=== PATIENT | female | born 1995 | race Caucasian/White ===

== ENCOUNTER 2017-10-14 21:44 | Emergency (ER) | payer OTHER, BC ==
[~2017-10-14] VITALS: Ht 170.2 cm; Wt 54.9 kg
== END 2017-10-14 22:14 | disposition home or self-care (01) ==
LOC: ED 21:44
DX: T23.211A Burn of second degree of right thumb (nail), initial encounter (principal); T28.1XXA Burn of esophagus, initial encounter; Z88.4 Allergy status to anesthetic agent
CPT/HCPCS: 16020; 99282

== ENCOUNTER 2019-03-13 17:20 | Observation (INO) | payer OTHER ==
[~2019-03-13 17:20] MED LIST: MACROBID 100 M100 MG PO; ZOFRAN4 MG PO
--- NOTE | 2019-03-13 19:20 | PR ---
[facility] [address] [facility] [place], [place] [address] Signed AP Progress Notes Datetime Report Generated by CPN: 03/13/2019 19:20 Chief Complaint: CTXs PHYSICAL EXAM: [id number] General: Normal HEENT: Normal Respiratory: Normal Back: Normal Abdomen: Normal Geniturinry Exam: Not Done VITAL SIGNS: [id number] Vital Signs: Reviewed; Within Normal Limits EXAM: [id number] Dilatation: 0.0 Effacement: 0 Station: -4 Contraction Comments: q 6 minutes MEMBRANES: [id number] Pooling: Negative Nitrazine: Equiv Membranes: Intact Fetus A: [id number] FHR Baseline: 135 Variability: Moderate 6-25bpm Accelerations: 15X15 Deceleration: None FHR Category: Category I Fetus A Comments: No evidence of metabolic acidosis Presentation: Vertex Fetus B: [id number] PROGRESS NOTES: [id number] Impression: 1. IUP @ 30w2d 2. Threatened labor 3. Shortened cervix on US; unchanged from 01/22/19 4. NST reactive Plan: Per report, CL unchanged since 01/22/19 @ 1.46cm, however US on 01/23 w/ MFM shows CL 3.0mm w/out funneling. Awaiting official report. Will admit patient for observation. Will give dose of terb. Will monitor contractions w/ continuous tocometer and for cervical change, and if cervical change noted will then initiate betamethasone, *Electronically Signed* 03/13/191919 CHAUNCEY FARRAR DO PATIENT NAME: FLY BRIDGES PROGRESS NOTE DATE OF : [birth year] PHYSICIAN: CHAUNCEY FARRAR DO RPT #: [id number] REPORT IS CONFIDENTIAL AND NOT TO BE RELEASED WITHOUT AUTHORIZATION [facility] [address] [facility] [place], [place] [address] Signed magnesium sulfate, and consider transfer to higher level of care. Reviewed w/ pt who understands and agrees. Signing Physician: Chauncey Farrar DO Copies: ~ *Electronically Signed* 03/13/191919 CHAUNCEY FARRAR DO PATIENT NAME: FLY BRIDGES PROGRESS NOTE DATE OF : 97 PHYSICIAN: CHAUNCEY FARRAR DO RPT #: [id number] REPORT IS CONFIDENTIAL AND NOT TO BE RELEASED WITHOUT AUTHORIZATION
--- NOTE | 2019-03-14 09:48 | PR ---
[facility] [address] [facility] [place], [place] [address] Signed AP Progress Notes Datetime Report Generated by CPN: 03/14/2019 09:48 Chief Complaint: Only rare, mild contractions, feels fine PHYSICAL EXAM: [id number] General: Normal HEENT: Normal Respiratory: Normal Back: Normal Abdomen: Normal Geniturinry Exam: Not Done VITAL SIGNS: [id number] Vital Signs: Reviewed; Within Normal Limits EXAM: [id number] Dilatation: 0.0 Effacement: 0 Station: -4 Contraction Comments: rare MEMBRANES: [id number] Pooling: Negative Nitrazine: Equiv Membranes: Intact Fetus A: [id number] FHR Baseline: 135 Variability: Moderate 6-25bpm Accelerations: 15X15 Deceleration: None FHR Category: Category I Fetus A Comments: No evidence of metabolic acidosis Presentation: Vertex Fetus B: [id number] PROGRESS NOTES: [id number] Impression: No Labor Plan: Home Light Duty (patient would like to continue working) - note written Signing Physician: Angelica Newberry MD Copies: *Electronically Signed* 03/14/19 0948 ANGELICA NEWBERRY MD PATIENT NAME: FLY BRIDGES PROGRESS NOTE DATE OF : 97 PHYSICIAN: ANGELICA NEWBERRY MD RPT #: [id number] REPORT IS CONFIDENTIAL AND NOT TO BE RELEASED WITHOUT AUTHORIZATION [address] [address] Signed ~ *Electronically Signed* 03/14/19 0948 ANGELICA NEWBERRY MD PATIENT NAME: FLY BRIDGES PROGRESS NOTE DATE OF : [birth year] PHYSICIAN: ANGELICA NEWBERRY MD RPT #: [id number] REPORT IS CONFIDENTIAL AND NOT TO BE RELEASED WITHOUT AUTHORIZATION
== END 2019-03-14 10:15 | disposition home or self-care (01) ==
LOC: FBCO 17:20 → FBC 19:22
PROVIDERS: ADMIT Obstetrics & Gynecology
DX: O60.03 Preterm labor without delivery, third trimester (principal); O34.43 Maternal care for other abnormalities of cervix, third trimester; Z3A.30 30 weeks gestation of pregnancy
CPT/HCPCS: 76817; 82731; J3105

== ENCOUNTER 2019-05-13 06:17 | Inpatient (IN) | payer OTHER ==
--- NOTE | 2019-05-13 11:04 | PR ---
[facility] [address] [facility] [place], [place] [address] Signed Progress Notes IP Datetime Report Generated by CPN: 05/13/2019 11:04 PROGRESS NOTES: [id number] Impression: Normal progression of labor; Rupture of membranes Plan: Continue present management; Anticipate Vaginal Delivery VITAL SIGNS: [id number] Vital Signs: Reviewed; Within Normal Limits EXAM: [id number] Dilatation: 4.0 Effacement: 80 Station: -1 Uterine Contractions: every2-4 minutes MEMBRANES: [id number] Pooling: Negative Nitrazine: Equiv Membrane Status: Ruptured Amniotic Fluid Color: Clear ROM Note: SROM with moderate amount clear fluid Comments: Comfortable with Epidural Fetus A: [id number] FHR Baseline: 120 Variability: Moderate 6-25bpm Accelerations: 15X15 Decelerations: None FHR Category: Category I Presentation: Vertex Comments on Fetus A: No evidence of metabolic acidosis Fetus B: [id number] Signing Physician: Angelica Newberry MD Copies: ~ *Electronically Signed* 05/13/19 1104 ANGELICA NEWBERRY MD PATIENT NAME: FLY BRIDGES PROGRESS NOTE DATE OF : 97 PHYSICIAN: NAGELICA NEWBERRY MD RPT #: [id number] REPORT IS CONFIDENTIAL AND NOT TO BE RELEASED WITHOUT AUTHORIZATION
--- NOTE | 2019-05-13 12:43 | PR ---
[facility] [address] [facility] [place], [place] [address] Signed Progress Notes IP Datetime Report Generated by CPN: 05/13/2019 12:43 PROGRESS NOTES: [id number] Impression: Slow Progression of Labor Plan: Augmentation VITAL SIGNS: [id number] Vital Signs: Reviewed; Within Normal Limits EXAM: [id number] Dilatation: 5.0 Effacement: 80 Station: -1 Uterine Contractions: every 2-6 minutes MEMBRANES: [id number] Pooling: Negative Nitrazine: Equiv Membrane Status: Ruptured Amniotic Fluid Color: Clear ROM Note: SROM with moderate amount clear fluid Comments: Confirmtalbe with Epidural. Will start Pitocin augmentation Fetus A: [id number] FHR Baseline: 120 Variability: Moderate 6-25bpm Accelerations: 15X15 Decelerations: None FHR Category: Category I Presentation: Vertex Comments on Fetus A: No evidence of metabolic acidosis Fetus B: [id number] Signing Physician: Angelica Newberry MD Copies: ~ *Electronically Signed* 05/13/19 1243 ANGELICA NEWBERRY MD PATIENT NAME: FLY BRIDGES PROGRESS NOTE DATE OF : [birth year] PHYSICIAN: ANGELICA NEWBERRY MD RPT #: [id number] REPORT IS CONFIDENTIAL AND NOT TO BE RELEASED WITHOUT AUTHORIZATION
--- NOTE | 2019-05-13 15:44 | PR ---
[facility] [address] [place], [place] [address] Signed Progress Notes IP Datetime Report Generated by CPN: 05/13/2019 15:44 PROGRESS NOTES: [id number] Impression: Slow Progression of Labor Procedures: Artificial ROM; Intrauterine Pressure Catheter; Scalp Electrode Plan: Continue present management; Augmentation VITAL SIGNS: [id number] Vital Signs: Reviewed; Within Normal Limits EXAM: I3699856 Dilatation: 5.0 Effacement: 80 Station: -1 Uterine Contractions: every 2-3 minutes MEMBRANES: [id number] Pooling: Negative Nitrazine: Equiv Membrane Status: Ruptured Amniotic Fluid Color: Clear ROM Note: 2nd BOW palpable - AROM with another moderate amount clear fluid Comments: On Pitocin, but still no progress. Getting uncomfortable with contractions. Anesthesia called for possible redose. Internal monitors inserted to confirm adequate contractions. Hopefully will start cervical change Fetus A: [id number] FHR Baseline: 130 Variability: Moderate 6-25bpm Accelerations: 15X15 Decelerations: None FHR Category: Category I Presentation: Vertex Comments on Fetus A: No evidence of metabolic acidosis Fetus B: [id number] Signing Physician: Angelica Newberry MD Copies: ~ *Electronically Signed* 05/13/19 1544 ANGELICA NEWBERRY MD PATIENT NAME: FLY BRIDGES PROGRESS NOTE DATE OF : [birth year] PHYSICIAN: ANGELICA NEWBERRY MD RPT #: [id number] REPORT IS CONFIDENTIAL AND NOT TO BE RELEASED WITHOUT AUTHORIZATION
--- NOTE | 2019-05-13 20:27 | PR ---
[facility] [address] [place], [place] [address] Signed Progress Notes IP Datetime Report Generated by CPN: 05/13/2019 20:26 PROGRESS NOTES: [id number] Impression: Normal progression of labor Procedures: Artificial ROM; Intrauterine Pressure Catheter; Scalp Electrode Plan: Continue present management; Anticipate Vaginal Delivery VITAL SIGNS: W3018561 Vital Signs: Reviewed; Within Normal Limits EXAM: C5107206 Dilatation: 9.0 Effacement: 100 Station: -1 Uterine Contractions: everyb 2-3 minutes MEMBRANES: [id number] Pooling: Negative Nitrazine: Equiv Membrane Status: Ruptured Amniotic Fluid Color: Clear ROM Note: 2nd BOW palpable - AROM with another moderate amount clear fluid Comments: Getting uncomfortable again. Pitocin has been off about 4 hours, still having strong contractions, making progress. FHR best in high Sims's position, so will continue. Anesthesia called for redose Fetus A: [id number] FHR Baseline: 125 Variability: Moderate 6-25bpm Accelerations: 15X15 Decelerations: None FHR Category: Category I Presentation: Vertex Comments on Fetus A: No evidence of metabolic acidosis Fetus B: [id number] Signing Physician: Angelica Newberry MD Copies: ~ *Electronically Signed* 05/13/192025 ANGELICA NEWBERRY MD PATIENT NAME: FLY BRIDGES PROGRESS NOTE DATE OF : 97 PHYSICIAN: ANGELICA NEWBERRY MD RPT #: [id number] REPORT IS CONFIDENTIAL AND NOT TO BE RELEASED WITHOUT AUTHORIZATION
--- NOTE | 2019-05-14 13:16 | PR ---
[facility] [address] [facility] [place] [address] Signed PP Progress Notes Datetime Report Generated by CPN: 05/14/2019 13:16 SUBJECTIVE: [id number] Pain: Within normal limits Nausea/Vomiting: Denies Vital Signs: H5236886 Vital Signs: Reviewed; Within Normal Limits Notable Details: PP Hgb/Hct = 9.6/28.8 EXAM: [id number] Abdomen/Uterus: Normal Lochia: Normal Extremities: Normal IMPRESSION/PLAN/PROCEDURES: P2769952 Impression: Normal progression Plan: Continue present management Procedures: None Progress Notes: Doing well, [place] out, voiding without difficulty. Increase activity as tolerated Signing Physician: Angelica Newberry MD Copies: ~ *Electronically Signed* 05/14/19 1316 ANGELICA NEWBERRY MD PATIENT NAME: FLY BRIDGES PROGRESS NOTE DATE OF : 97 PHYSICIAN: ANGELICA NEWBERRY MD RPT #: [id number] REPORT IS CONFIDENTIAL AND NOT TO BE RELEASED WITHOUT AUTHORIZATION
--- NOTE | 2019-05-15 13:44 | PR ---
[facility] [address] [facility] [place] [address] Signed PP Progress Notes Datetime Report Generated by CPN: 05/15/2019 13:44 SUBJECTIVE: [id number] Pain: Within normal limits Nausea/Vomiting: Denies Vital Signs: [id number] Vital Signs: Reviewed; Within Normal Limits Notable Details: PP Hgb/Hct = 9.6/28.8 EXAM: [id number] Abdomen/Uterus: Normal Lochia: Normal Extremities: Normal IMPRESSION/PLAN/PROCEDURES: I4084156 Impression: Normal progression Plan: Discharge Procedures: None Progress Notes: Doing well, without complalint, would like to go home. Signing Physician: Angelica Newberry MD Copies: ~ *Electronically Signed* 05/15/19 1344 ANGELICA NEWBERRY MD PATIENT NAME: FLY BRIDGES PROGRESS NOTE DATE OF : 97 PHYSICIAN: ANGELICA NEWBERRY MD RPT #: [id number] REPORT IS CONFIDENTIAL AND NOT TO BE RELEASED WITHOUT AUTHORIZATION
== END 2019-05-15 15:25 | disposition home or self-care (01) | DRG 768 ==
LOC: FBCO 06:17 → FBC 08:20
PROVIDERS: ADMIT General Practice
PROC: 10E0XZZ Delivery of Products of Conception, External Approach (ICD-10-PCS; principal; 2019-05-13)
PROC: 0UQG0ZZ Repair Vagina, Open Approach (ICD-10-PCS; 2019-05-13)
PROC: 0W8NXZZ Division of Female Perineum, External Approach (ICD-10-PCS; 2019-05-13)
PROC: 10H07YZ Insertion of Other Device into Products of Conception, Via Natural or Artificial Opening (ICD-10-PCS; 2019-05-13)
PROC: 00HU33Z Insertion of Infusion Device into Spinal Canal, Percutaneous Approach (ICD-10-PCS; 2019-05-13)
PROC: 3E0R3BZ Introduction of Anesthetic Agent into Spinal Canal, Percutaneous Approach (ICD-10-PCS; 2019-05-13)
DX: O26.873 Cervical shortening, third trimester (principal); Z37.0 Single live birth; O71.4 Obstetric high vaginal laceration alone; Z3A.39 39 weeks gestation of pregnancy; O76 Abnormality in fetal heart rate and rhythm complicating labor and delivery; O69.1XX0 Labor and delivery complicated by cord around neck, with compression, not applicable or unspecified; O90.81 Anemia of the puerperium; D64.9 Anemia, unspecified; O28.2 Abnormal cytological finding on antenatal screening of mother; Z88.8 Allergy status to other drugs, medicaments and biological substances; Z88.4 Allergy status to anesthetic agent
CPT/HCPCS: 36415; 82565; 82570; 84156; 84450; 84520; 84550; 85025; 85027; A9270; J2590; J2795; J7121

== ENCOUNTER 2020-05-25 07:13 | Day surgery (SDC) | payer OTHER ==
[~2020-05-25] VITALS: Ht 170.2 cm; Wt 59.0 kg
[2020-05-25] MEDS ORDERED: MULTI VITAMIN1 EACH PO (07:38)
--- NOTE | 2020-05-25 08:54 | NUR ---
05/25/20 0854 Connor,Radha 0841 PT ARRIVED TO PACU ON 3L VIA NC, VSS. PT VERY DROWSY AND FALLS EASILY TO SLEEP. RESP EVEN AND UNLABORED. 0852 O2 REMOVED O2 SAT 100%.
--- NOTE | 2020-05-25 10:01 | OR ---
[facility] [address] [place], [place] [address] Signed DATE OF OPERATION: 05/25/2020 SURGEON: Aylin Madrigal MD PREOPERATIVE DIAGNOSES: 1. Rectal bleeding. 2. Paternal great grandfather with colon cancer. 3. Maternal great grandfather with colon cancer. POSTOPERATIVE DIAGNOSIS: Unremarkable colonoscopy. PROCEDURE: Colonoscopy without biopsy. ESTIMATED BLOOD LOSS: None. INDICATIONS: Shahrzad is a 25-year-old female who had her first child born about one year ago. This was a vaginal . She does not recall having episiotomy or needing any sutures. However, last month she was having some blood per rectum. It was not necessarily associated with bowel movements. There was no pain. She had been to her primary care provider. Nothing externally on exam. She had been asked to see me for a colonoscopy. In the office, I gave her a pamphlet on colonoscopy. We looked at that together along with the risks including, but not limited to gas bloating, crampy abdominal pain, bleeding, perforation requiring surgery, and missed diagnosis. She also told me she is slow to wake up from anesthesia and in particular propofol. Consequently, we decided to proceed with our usual Versed and fentanyl. She had expressed understanding and wished to proceed. PROCEDURE NOTE: Shahrzad was taken into our endoscopy suite and placed in the left lateral decubitus position. She was given a total of 7 mg of Versed and 150 mcg of fentanyl to cover the case. A digital rectal exam was performed. Externally, she was absolutely fine. She has excellent sphincter tone. Given her slight build, she also has a short anal canal. Although again good sphincter tone. No obvious fissure anterior or posteriorly. After this the adult colonoscope was introduced and advanced all around into the cecum under direct visualization of camera without difficulty. It took a little extra sedation abdominal compression in order to advance the scope. Her prep was quite excellent. We Electronically Signed By: AYLIN MADRIGAL MD 05/25/20 1001 PATIENT NAME: SHAHRZAD BRIDGES OPERATIVE REPORT DATE OF : [birth year] REPORT #: [id number] PHYSICIAN: AYLIN MADRIGAL MD PCP: ARNULFO BASURTO PA-C REPORT IS CONFIDENTIAL AND NOT TO BE RELEASED WITHOUT AUTHORIZATION [facility] [address] [place] [id number] Signed took pictures throughout for photodocumentation. The scope was rotated. There was a little tension on the scope, so we could not enter the terminal ileum. The scope was slowly withdrawn and the entire colon was unremarkable. There were no inflammatory changes. No polyps. No diverticulosis. The rectum was unremarkable as well. No biopsies were taken. Once in the rectum, the scope was retroflexed and we carefully examined the area above the anal canal. No additional pathology was noted. After this, the gas was suctioned out and colonoscope removed. Shahrzad tolerated the procedure quite well. RECOMMENDATIONS: Shahrzad can follow up in my office as needed. Aylin Madrigal MD ALB/MODL /[id number] cc: CHECO Downing MD Copies: AYLIN MADRIGAL MD ~ Electronically Signed By: AYLIN MADRIGAL MD 05/25/20 1001 PATIENT NAME: SHAHRZAD BRIDGES OPERATIVE REPORT DATE OF : [birth year] REPORT #: [id number] PHYSICIAN: AYLIN MADRIGAL MD PCP: ARNULFO BASURTO PA-C REPORT IS CONFIDENTIAL AND NOT TO BE RELEASED WITHOUT AUTHORIZATION
== END 2020-05-25 10:00 | disposition home or self-care (01) ==
LOC: OPS 07:13 → DS 07:13 → OPS 08:15 → DS 09:00 → OPS 10:00
PROVIDERS: ATTEND Colon & Rectal Surgery
DX: K62.5 Hemorrhage of anus and rectum (principal); Z80.0 Family history of malignant neoplasm of digestive organs; Z86.16 Personal history of COVID-19; Z88.4 Allergy status to anesthetic agent; Z91.030 Bee allergy status; Z91.011 Allergy to milk products; Z88.8 Allergy status to other drugs, medicaments and biological substances; Z91.048 Other nonmedicinal substance allergy status
CPT/HCPCS: 84703; 99153; G0500; J2250; J2405; J3010; J7121

== ENCOUNTER 2021-02-02 08:42 | Emergency (ER) | payer OTHER ==
[~2021-02-02] VITALS: Ht 170.2 cm; Wt 59.0 kg
[~2021-02-02 08:42] MED LIST changes: +MULTI VITAMIN1 EACH PO
[2021-02-02] MEDS ORDERED: ONDANSETRON ODT8 MG PO (11:01)
== END 2021-02-02 11:25 | disposition home or self-care (01) ==
LOC: ED 08:42
DX: K29.00 Acute gastritis without bleeding (principal); R55 Syncope and collapse; Z91.048 Other nonmedicinal substance allergy status; Z91.030 Bee allergy status; Z88.8 Allergy status to other drugs, medicaments and biological substances; Z79.899 Other long term (current) drug therapy
CPT/HCPCS: 80053; 83690; 84703; 85025; 96374; 99284-25; J2405; J7030

== ENCOUNTER 2021-12-12 20:10 | Emergency (ER) | payer OTHER ==
[~2021-12-12] VITALS: Ht 170.2 cm; Wt 62.9 kg
[~2021-12-12 20:10] MED LIST changes: +ONDANSETRON ODT8 MG PO
== END 2021-12-12 22:59 | disposition home or self-care (01) ==
LOC: ED 20:10
DX: S93.401A Sprain of unspecified ligament of right ankle, initial encounter (principal); S83.91XA Sprain of unspecified site of right knee, initial encounter; S76.011A Strain of muscle, fascia and tendon of right hip, initial encounter; S80.811A Abrasion, right lower leg, initial encounter; W18.39XA Other fall on same level, initial encounter; Z91.014 Allergy to mammalian meats; Z91.011 Allergy to milk products; Z88.8 Allergy status to other drugs, medicaments and biological substances; Z91.048 Other nonmedicinal substance allergy status
CPT/HCPCS: 73502; 73560; 73610; 84703; J1885

== ENCOUNTER 2022-04-28 09:59 | Emergency (ER) | payer OTHER ==
[~2022-04-28] VITALS: Ht 170.2 cm; Wt 62.9 kg
[2022-04-28] MEDS ORDERED: ONDANSETRON ODT4 MG PO (15:22)
== END 2022-04-28 15:37 | disposition home or self-care (01) ==
LOC: ED 09:59
DX: J10.1 Influenza due to other identified influenza virus with other respiratory manifestations (principal); B97.4 Respiratory syncytial virus as the cause of diseases classified elsewhere; Z91.011 Allergy to milk products; Z88.8 Allergy status to other drugs, medicaments and biological substances; Z91.030 Bee allergy status; Z20.822 Contact with and (suspected) exposure to COVID-19
CPT/HCPCS: 87502; 96361; 96374; 96375; 99284-25; A9270; C9803; J1885; J2405; J7030; U0003

== ENCOUNTER 2023-07-09 20:32 | Emergency (ER) | payer OTHER ==
[~2023-07-09] VITALS: Ht 170.2 cm; Wt 70.6 kg
[~2023-07-09 20:32] MED LIST changes: +ONDANSETRON ODT4 MG PO
[2023-07-09 22:56] LABS: BILIRUBIN, URINE NEGATIVE (negative); BLOOD/HGB, URINE SMALL (Negative); KETONE, URINE NEGATIVE (Negative); LEUK ESTERASE, URINE NEGATIVE (negative); NITRITE, URINE NEGATIVE (negative)
[2023-07-09] MEDS ORDERED: KETOROLAC TROMETHAMINE 30 MG/ML VIAL IV ONE (23:00)
[2023-07-09 23:05] LABS: BACTERIA, URINE RARE /hpf (negative); CASTS, URINE NONE SEEN \\lpf; COLLECTION TYPE, URINE CLEAN CATCH; CRYSTALS, URINE NONE SEEN (0-1+); EPITHELIAL CELLS, URINE SQUAMOUS 1+ /lpf (0-1+); REFLEX CULTURE, URINE No (No); WHITE BLOOD CELLS, URINE 0-1 /HPF (0-5)
[2023-07-09 23:07] LABS: BASOPHILS 0.7 % (0-2); EOSINOPHILS 3.3 % (0-6); HEMATOCRIT 34.7 % (35.0-50.0); HEMOGLOBIN 11.6 g/dL (12.0-18.0); LYMPHOCYTES 40.8 % (24-44); MCH 29.4 (27-36); MCHC 33.5 g/dl (30-36); MCV 87.7 fl (81-99); MONOCYTES 6.2 % (0-12); PLATELET COUNT 250 K/uL (140-440); RBC 3.96 M/ul (4.3-5.7); RDW 12.7 (10.5-15.0)
[2023-07-09 23:26] LABS: ALBUMIN 3.2 g/dL (3.4-5.0); ALBUMIN/GLOBULIN RATIO 0.91 (1.1-2.4); ANION GAP 13.7 (7-21); BILIRUBIN, TOTAL 0.1 ng/dL (0.2-1.0); BUN/CREATININE RATIO 24.65 (6.0-28.6); CALCIUM 9.3 mg/dL (8.5-10.1); CREATININE, SERUM 0.73 mg/dL (0.55-1.02); POTASSIUM 3.7 mmol/L (3.5-5.1); PROTEIN, TOTAL 6.7 g/dL (6.4-8.2)
[2023-07-09] MEDS ORDERED: LACTATED RINGER'S 1,000 ML IV ONE (23:30)
[2023-07-10 01:31] VITALS: BP 113/72
== END 2023-07-10 01:31 | disposition home or self-care (01) ==
LOC: ED 20:32
PROVIDERS: Internal Medicine
DX: N93.9 Abnormal uterine and vaginal bleeding, unspecified (principal); Z88.8 Allergy status to other drugs, medicaments and biological substances; Z91.048 Other nonmedicinal substance allergy status
CPT/HCPCS: 36415; 80053; 81001; 84703; 85025; 96374; 99284-25; J1885; J7121